=== PATIENT | male | born 1950 | race Caucasian/White ===

== ENCOUNTER 2020-03-06 05:36 | Outpatient (RCR) | payer MEDICARE ==
[~2020-03-06] VITALS: Ht 172.7 cm; Wt 116.4 kg
[2020-03-06] MEDS ORDERED: LORA10TA76 PO (15:15)
[2020-03-06] MEDS ORDERED: GLUC100016 PO (15:15)
[2020-03-06] MEDS ORDERED: GLIP10TA13 PO (15:15)
[2020-03-06] MEDS ORDERED: METF-399 PO (15:15)
[2020-03-06] MEDS ORDERED: CARV25TA PO (15:15)
[2020-03-06] MEDS ORDERED: NAPR220T66 PO (15:15)
[2020-03-06] MEDS ORDERED: ASPI-999 PO (15:15)
[2020-03-06] MEDS ORDERED: LISI1TAB26 PO (15:15)
[2020-03-06] MEDS ORDERED: EMPA25TA PO (15:15)
[2020-03-06] MEDS ORDERED: ROSU10TA28 PO (15:15)
== END 2020-03-06 15:16 | disposition home or self-care (01) ==
LOC: PREOP 05:36
PROVIDERS: ATTEND Surgery
DX: Z01.818 Encounter for other preprocedural examination (principal)

== ENCOUNTER 2020-06-24 16:05 | Observation (INO) | payer OTHER ==
[~2020-06-24] VITALS: Ht 172.7 cm; Wt 116.0 kg
[~2020-06-24 16:05] MED LIST: ASPI-999 PO; CARV25TA PO; EMPA25TA PO; GLIP10TA13 PO; GLUC100016 PO; LISI1TAB26 PO; LORA10TA76 PO; METF-399 PO; NAPR220T66 PO; ROSU10TA28 PO
[2020-06-24] MEDS ORDERED: NS IV 500 ML 500 ML IV ONE (16:12)
[2020-06-24] MEDS ORDERED: RT-ALBUTEROL/IPRATROPIUM 3 ML (DUONEB) VIAL ONE (16:14)
[2020-06-24] MEDS ORDERED: fentaNYL INJECTION 100 MCG/2 ML AMP IVP ONE (16:15)
[2020-06-24] MEDS ORDERED: RT-ALBUTEROL/IPRATROPIUM 3 ML (DUONEB) VIAL INH ONE (16:15)
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
[2020-06-24 16:24] LABS: BASOPHILS # (AUTO) 0.1 10^3/uL (0.0-0.1); BASOPHILS % (AUTO) 1 % (0-10); EOSINOPHILS # (AUTO) 0.3 10^3/uL (0.0-0.3); EOSINOPHILS % (AUTO) 3 % (0-10); HEMATOCRIT 48 % (40-54); HEMOGLOBIN 15.9 g/dL (13.3-17.7); LYMPHOCYTES # (AUTO) 2.3 10^3/uL (1.0-4.0); LYMPHOCYTES % (AUTO) 22 % (12-44); MEAN CORPUSCULAR HEMOGLOBIN 29 pg (25-34); MEAN CORPUSCULAR HGB CONC 33 g/dL (32-36); MEAN CORPUSCULAR VOLUME 87 fL (80-99); MEAN PLATELET VOLUME 10.3 fL (9.0-12.2); MONOCYTES % (AUTO) 10 % (0-12); NEUTROPHILS # (AUTO) 6.3 10^3/uL (1.8-7.8); NEUTROPHILS % (AUTO) 63 % (42-75); PLATELET COUNT 302 10^3/uL (130-400); WHITE BLOOD COUNT 10.1 10^3/uL (4.3-11.0)
[2020-06-24] MEDS ORDERED: NS IV 1000 ML 1,000 ML ONE (16:26)
[2020-06-24] MEDS ORDERED: ceFAZolin INJECTION 1,000 MG in WATER (STERILE) FOR INJECTION 10 ML IV ONE (16:30)
[2020-06-24] MEDS ORDERED: TETANUS,DIPTH,PERTUSS P/F (BOOSTRIX) 0.5 ML VIAL IM ONE (16:30)
[2020-06-24 16:34] LABS: ALBUMIN 4.4 GM/DL (3.2-4.5); POTASSIUM 4.3 MMOL/L (3.6-5.0)
[2020-06-24 16:36] LABS: CALCIUM 9.6 MG/DL (8.5-10.1)
[2020-06-24 16:37] LABS: TOTAL PROTEIN 7.5 GM/DL (6.4-8.2)
[2020-06-24 16:39] LABS: BILIRUBIN,TOTAL 0.4 MG/DL (0.1-1.0)
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
[2020-06-24 16:40] LABS: CREATININE SERUM 1.59 MG/DL (0.60-1.30)
[2020-06-24] MEDS ORDERED: HYDROcodone/APAP 5 MG/325 MG (LORTAB) TAB PO ONE (16:45)
[2020-06-24 17:09] LABS: ABG BASE EXCESS -2.1 MMOL/L (-2.5-2.5); ABG OXYGEN SATURATION 96 % (94-100); ABG PCO2 38 MMHG (35-45); ABG PH 7.38 (7.37-7.43); ABG PO2 94 MMHG (79-93); ABG TCO2 23.4 MMOL/L (21.0-31.0)
[2020-06-24 17:12] LABS: ALLENS TEST YES-POS; INSPIRED O2 2; PATIENT TEMP 98.4; VENTILATOR NO
--- NOTE | 2020-06-24 17:45 | NUR ---
PT RESTING QUIETLY, NO C/O VOICED, VSS AT THIS TIME.
[2020-06-24 18:40] VITALS: BP 126/83
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
[2020-06-24 20:11] VITALS: BP 135/73
[2020-06-24] MEDS ORDERED: ONDANSETRON 4 MG/2 ML (SDV) Z0FRAN IVP PRN (20:45)
[2020-06-24] MEDS ORDERED: fentaNYL INJECTION 100 MCG/2 ML AMP IVP PRN (20:45)
[2020-06-24] MEDS: inSUlin ASPART (NovoLOG) 1 UNIT/0.01 ML (CHARGE PER UNIT) SC SCH (21:37)
[2020-06-24] MEDS ORDERED: RT-ALBUTEROL SULF 2.5 MG/3 ML PRE-MIX VIAL INH PRN (21:45)
[2020-06-25] VITALS: BP 142/64
[2020-06-25] MEDS: HYDROcodone/APAP 5 MG/325 MG (LORTAB) TAB PO PRN ×2 (00:30→10:46)
[2020-06-25 04:00] VITALS: BP 120/76
[2020-06-25 04:13] LABS: BASOPHILS # (AUTO) 0.1 10^3/uL (0.0-0.1); BASOPHILS % (AUTO) 1 % (0-10); EOSINOPHILS # (AUTO) 0.2 10^3/uL (0.0-0.3); EOSINOPHILS % (AUTO) 2 % (0-10); HEMATOCRIT 50 % (40-54); HEMOGLOBIN 16.8 g/dL (13.3-17.7); LYMPHOCYTES # (AUTO) 2.5 10^3/uL (1.0-4.0); LYMPHOCYTES % (AUTO) 18 % (12-44); MEAN CORPUSCULAR HEMOGLOBIN 29 pg (25-34); MEAN CORPUSCULAR HGB CONC 33 g/dL (32-36); MEAN CORPUSCULAR VOLUME 86 fL (80-99); MEAN PLATELET VOLUME 10.4 fL (9.0-12.2); MONOCYTES # (AUTO) 1.4 10^3/uL (0.0-1.0); MONOCYTES % (AUTO) 10 % (0-12); NEUTROPHILS # (AUTO) 9.2 10^3/uL (1.8-7.8); NEUTROPHILS % (AUTO) 68 % (42-75); PLATELET COUNT 309 10^3/uL (130-400); WHITE BLOOD COUNT 13.5 10^3/uL (4.3-11.0)
[2020-06-25 04:17] LABS: ALBUMIN 3.9 GM/DL (3.2-4.5)
[2020-06-25 04:18] LABS: POTASSIUM 4.1 MMOL/L (3.6-5.0)
[2020-06-25 04:19] LABS: CALCIUM 8.8 MG/DL (8.5-10.1)
[2020-06-25 04:20] LABS: TOTAL PROTEIN 6.8 GM/DL (6.4-8.2)
[2020-06-25 04:22] LABS: BILIRUBIN,TOTAL 0.6 MG/DL (0.1-1.0)
[2020-06-25 04:24] LABS: CREATININE SERUM 1.34 MG/DL (0.60-1.30)
[2020-06-25] MEDS: inSUlin ASPART (NovoLOG) 1 UNIT/0.01 ML (CHARGE PER UNIT) SC SCH (06:38)
[2020-06-25 08:00] VITALS: BP 108/78
[2020-06-25] MEDS ORDERED: ACHD5005 PO (09:34)
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
[2020-06-25 11:00] VITALS: BP 138/88
--- NOTE | 2020-06-25 13:08 | NUR ---
PT WAS DISCHARGED/TRANSFERRED BEFORE THE MED REC COULD BE COMPLETED- I DID ATTACH [facility] TO [facility] CHART
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
== END 2020-06-25 11:00 | disposition home or self-care (01) ==
LOC: EDUNIT# 16:05 → ER 16:07 → CSD 17:00
PROVIDERS: ADMIT Family Medicine; ATTEND Family Medicine
DX: T59.811A Toxic effect of smoke, accidental (unintentional), initial encounter (principal); T22.00XA Burn of unspecified degree of shoulder and upper limb, except wrist and hand, unspecified site, initial encounter; I10 Essential (primary) hypertension; E78.5 Hyperlipidemia, unspecified; E11.9 Type 2 diabetes mellitus without complications; E78.00 Pure hypercholesterolemia, unspecified; M19.90 Unspecified osteoarthritis, unspecified site; Z79.899 Other long term (current) drug therapy; Z87.891 Personal history of nicotine dependence
CPT/HCPCS: 36415; 71045; 80053; 82375; 82805; 82962; 85025; 90715

== ENCOUNTER 2020-07-05 16:34 | Observation (INO) | payer OTHER ==
[~2020-07-05] VITALS: Ht 147 cm; Wt 109.9 kg
[~2020-07-05 16:34] MED LIST changes: +ACHD5005 PO
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
[2020-07-05 17:15] LABS: BASOPHILS # (AUTO) 0.1 10^3/uL (0.0-0.1); BASOPHILS % (AUTO) 0 % (0-10); EOSINOPHILS # (AUTO) 0.1 10^3/uL (0.0-0.3); EOSINOPHILS % (AUTO) 1 % (0-10); HEMATOCRIT 44 % (40-54); HEMOGLOBIN 14.8 g/dL (13.3-17.7); LYMPHOCYTES % (AUTO) 12 % (12-44); MEAN CORPUSCULAR HEMOGLOBIN 29 pg (25-34); MEAN CORPUSCULAR HGB CONC 33 g/dL (32-36); MEAN CORPUSCULAR VOLUME 86 fL (80-99); MEAN PLATELET VOLUME 9.5 fL (9.0-12.2); MONOCYTES # (AUTO) 1.6 10^3/uL (0.0-1.0); MONOCYTES % (AUTO) 9 % (0-12); NEUTROPHILS # (AUTO) 13.3 10^3/uL (1.8-7.8); NEUTROPHILS % (AUTO) 77 % (42-75); PLATELET COUNT 451 10^3/uL (130-400); WHITE BLOOD COUNT 17.2 10^3/uL (4.3-11.0)
[2020-07-05 17:24] LABS: CHLORIDE 99 MMOL/L (98-107); POTASSIUM 3.8 MMOL/L (3.6-5.0); SODIUM 134 MMOL/L (135-145)
[2020-07-05 17:26] LABS: CALCIUM 9.3 MG/DL (8.5-10.1); GLUCOSE 74 MG/DL (70-105)
[2020-07-05 17:27] LABS: CARBON DIOXIDE 21 MMOL/L (21-32)
[2020-07-05 17:30] LABS: CREATININE SERUM 1.18 MG/DL (0.60-1.30); GFR ESTIMATED > 60
[2020-07-05 17:31] LABS: BUN/CREATININE RATIO 25
[2020-07-05 17:55] VITALS: BP_SYST 145; BP_SYST 158; BP_SYST 168; BP_DIAS 83; BP_DIAS 87; BP_DIAS 89
[2020-07-05 17:57] LABS: BAND NEUTROPHILS 0 %; BASOPHILS % (MANUAL) 0 %; EOSINOPHILS % (MANUAL) 1 %; LYMPHOCYTES % (MANUAL) 12 %; MONOCYTES % (MANUAL) 7 %; NEUTROPHILS % (MANUAL) 80 %; RBC MORPH NORMAL
[2020-07-05 20:11] VITALS: BP 127/87
[2020-07-05] MEDS ORDERED: CATHETER FLUSH 10 ML SYR IV PRN (20:30)
[2020-07-05] MEDS: LACTATED RINGERS 1,000 ML IV SCH (21:21)
[2020-07-05] MEDS ORDERED: ALOG12.52 PO (22:30)
--- NOTE | 2020-07-05 22:31 | NUR ---
AYO POPE admitted to room 409-1, with an admitting diagnosis of gi bleed & weakness, on 07/05/20 from ed via wheelchair, accompanied by staf.AYO POPE introduced to surroundings, call light, bed controls, phone, TV, temperature control, lights, meal times, smoking policy, visitor policy, side rail policy, bathrooms and showers. Patient Rights given to patient in the handbook. AYO POPE verbalizes understanding that [facility] is not responsible for the loss or damage to any personal effects or valuables that are kept in the patients possession during their hospitalization. AYO POPE verbalizes understanding of Interdisciplinary Patient Education. Patient and/or family were informed about the Rapid Response Team and its purpose. -pt has oxycodone-38 tabs in lockup in medroom-counted with this rn & marii caldwell rn
[2020-07-05] MEDS ORDERED: CEFA500C PO (22:32)
[2020-07-05] MEDS ORDERED: OXYC5TAB PO (22:39)
[2020-07-05] MEDS ORDERED: ACETAMINOPHEN 325 MG TABLET PO PRN (23:15)
--- NOTE | 2020-07-05 23:22 | NUR ---
pt asking about home medications being started specifically the antibiotics this rn called & spoke with dr. parker new orders received
[2020-07-05] MEDS ORDERED: CEFDINIR 300 MG (OMNICEF) CAP PO ONE (23:23)
[2020-07-05] MEDS: CEFDINIR 300 MG (OMNICEF) CAP PO SCH (23:26)
[2020-07-05 23:45] VITALS: BP 108/74
[2020-07-06] VITALS (7 sets, daily range): BP systolic 138–176; BP diastolic 76–91
[2020-07-06 05:44] LABS: BASOPHILS # (AUTO) 0.1 10^3/uL (0.0-0.1); BASOPHILS % (AUTO) 1 % (0-10); EOSINOPHILS # (AUTO) 0.2 10^3/uL (0.0-0.3); EOSINOPHILS % (AUTO) 1 % (0-10); HEMATOCRIT 40 % (40-54); HEMOGLOBIN 13.2 g/dL (13.3-17.7); LYMPHOCYTES # (AUTO) 2.1 10^3/uL (1.0-4.0); LYMPHOCYTES % (AUTO) 17 % (12-44); MEAN CORPUSCULAR HEMOGLOBIN 28 pg (25-34); MEAN CORPUSCULAR HGB CONC 33 g/dL (32-36); MEAN CORPUSCULAR VOLUME 86 fL (80-99); MEAN PLATELET VOLUME 9.9 fL (9.0-12.2); MONOCYTES # (AUTO) 1.7 10^3/uL (0.0-1.0); MONOCYTES % (AUTO) 13 % (0-12); NEUTROPHILS # (AUTO) 8.8 10^3/uL (1.8-7.8); NEUTROPHILS % (AUTO) 68 % (42-75); PLATELET COUNT 398 10^3/uL (130-400)
[2020-07-06 06:24] LABS: ALBUMIN 3.5 GM/DL (3.2-4.5); CHLORIDE 102 MMOL/L (98-107); POTASSIUM 3.6 MMOL/L (3.6-5.0); SODIUM 136 MMOL/L (135-145)
[2020-07-06 06:26] LABS: CALCIUM 9.1 MG/DL (8.5-10.1)
[2020-07-06 06:27] LABS: GLUCOSE 100 MG/DL (70-105); TOTAL PROTEIN 6.4 GM/DL (6.4-8.2)
[2020-07-06 06:28] LABS: CARBON DIOXIDE 22 MMOL/L (21-32)
[2020-07-06 06:29] LABS: BILIRUBIN,TOTAL 0.3 MG/DL (0.1-1.0)
[2020-07-06 06:30] LABS: ALKALINE PHOSPHATASE 51 U/L (40-136); CREATININE SERUM 1.08 MG/DL (0.60-1.30); GFR ESTIMATED > 60
[2020-07-06 06:31] LABS: BUN/CREATININE RATIO 24
[2020-07-06 06:33] LABS: ALANINE AMINOTRANSFERASE 22 U/L (0-55)
[2020-07-06] MEDS: LACTATED RINGERS 1,000 ML IV SCH ×3 (06:49→20:06)
[2020-07-06] MEDS: CEFDINIR 300 MG (OMNICEF) CAP PO SCH ×2 (08:34→20:06)
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
--- NOTE | 2020-07-06 11:30 | NUR ---
SPOKE WITH THE PT (HE HAD HIS HOME MEDS WITH HIM) AND HAD A FILL LIST FROM THE [facility] FROM HIS PREVIOUS ADMISSION THAT I USED TO COMPLETE THE MED REC THE FOLLOWING MEDS WERE FILL THRU THE [facility] ON 06-26-2020: CARVEDILOL 25MG #180/90DS ROSUVASTATIN 10MG #45/90DS ALOGLIPTIN 12.5MG #90/90DS GLIPIZIDE 10MG #360/90DS LISINOPRIL/HCTZ 20/25MG #180/90DS JARDIANCE 25MG #90/90DS METFORMIN 1000MG #180/90DS ASPIRIN 81MG CHEWABLE #120/120DS 06-27-2020 [facility] F[facility] CEFADROXIL 500MG #20/10DS 07-03-2020 [facility] F[facility]ED OXYCODONE 5MG #30 OTC MEDS: ALEBRANDON GLUCOSAMINE CLARITIN PT WAS LAST ADMITTED ON 06-24-2020 AND WAS DISCHARGED THE NEXT DAY FOR AN APPT IN , UNFORTUNATELY THE MED REC HAD NOT BEEN COMPLETED BEFORE THE PT DISCHARGED. ON THE MED REC IT HAD "ROSUVASTATIN 10MG PO HS" THAT WAS ENTERED BY [facility] ON 03-06-2020 EVEN THOUGH PT TAKES OF A 10MG HS (5MG HS). AT THIS ADMISSION A NOTE WAS PUT ON THE MED REC THAT INDICATES THE PT ONLY TAKES OF A 10MG HS BUT THE DOSE WAS NEVER CHANGED-I WILL THE ATTENDING PHYSICIAN KNOW OF THIS CHANGE
--- NOTE | 2020-07-06 12:35 | NUR ---
B/P 138/91, notified Dr. Massey. No new orders at this time, will continue to monitor.
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
[2020-07-06] MEDS ORDERED: ACETAMINOPHEN 325 MG TABLET PO PRN (16:00)
[2020-07-06] MEDS ORDERED: ACETAMINOPHEN 500 MG TAB (TYLENOL) PO PRN (16:00)
[2020-07-06] MEDS ORDERED: MILK OF MAGNESIA 400 MG/5 ML 30 ML UDC PO PRN (16:00)
[2020-07-06] MEDS ORDERED: MELATONIN 3 MG TABLET PO PRN (16:00)
[2020-07-06] MEDS ORDERED: ONDANSETRON 4 MG/2 ML (SDV) Z0FRAN IV PRN (16:00)
[2020-07-06] MEDS ORDERED: ANTACID SUSP 30 ML UDC (MYLANTA) PO PRN (16:00)
[2020-07-06] MEDS: NAPROXEN 250 MG (NAPROSYN) TABLET PO SCH (18:30)
[2020-07-06] MEDS ORDERED: ROSUVASTATIN 10 MG (CRESTOR) TABLET PO SCH (21:00)
[2020-07-07 04:00] VITALS: BP 157/82
[2020-07-07 07:21] LABS: HEMOGLOBIN 13.6 g/dL (13.3-17.7); MEAN PLATELET VOLUME 9.4 fL (9.0-12.2)
[2020-07-07 07:39] LABS: CHLORIDE 104 MMOL/L (98-107); POTASSIUM 4.1 MMOL/L (3.6-5.0); SODIUM 142 MMOL/L (135-145)
[2020-07-07 07:40] LABS: GLUCOSE 142 MG/DL (70-105)
[2020-07-07 07:42] LABS: CARBON DIOXIDE 25 MMOL/L (21-32)
[2020-07-07 07:44] LABS: CREATININE SERUM 1.12 MG/DL (0.60-1.30); GFR ESTIMATED > 60
[2020-07-07 07:45] LABS: BUN/CREATININE RATIO 21
[2020-07-07 08:00] VITALS: BP_SYST 100; BP_SYST 182; BP_DIAS 59; BP_DIAS 83
[2020-07-07] MEDS: NAPROXEN 250 MG (NAPROSYN) TABLET PO SCH (08:54)
[2020-07-07] MEDS: CEFDINIR 300 MG (OMNICEF) CAP PO SCH (08:54)
[2020-07-07] MEDS: LACTATED RINGERS 1,000 ML IV SCH (08:55)
[2020-07-07] MEDS ORDERED: LORATADINE (CLARITIN) 10 MG TAB PO SCH (09:00)
[2020-07-07] MEDS ORDERED: ASPIRIN 81 MG CHEW (CHILDREN'S ASA) PO SCH (09:00)
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
[2020-07-07 11:00] VITALS: BP 182/83
== END 2020-07-07 11:53 | disposition home or self-care (01) ==
LOC: EDUNIT# 16:34 → ER 16:36 → 4TH 19:35
PROVIDERS: ADMIT Family Medicine; ATTEND Family Medicine
DX: K92.2 Gastrointestinal hemorrhage, unspecified (principal); R53.1 Weakness; I10 Essential (primary) hypertension; E11.9 Type 2 diabetes mellitus without complications; E78.00 Pure hypercholesterolemia, unspecified; M19.90 Unspecified osteoarthritis, unspecified site; T22.00XD Burn of unspecified degree of shoulder and upper limb, except wrist and hand, unspecified site, subsequent encounter; Z79.82 Long term (current) use of aspirin; Z79.84 Long term (current) use of oral hypoglycemic drugs; Z79.899 Other long term (current) drug therapy; Z87.891 Personal history of nicotine dependence
CPT/HCPCS: 36415; 80048; 80053; 82274; 85007; 85025; 85027; G0378